=== PATIENT | male | born 1970 | race African-American/Black ===

== ENCOUNTER 2017-02-25 11:35 | Emergency (ER) | payer SELFPAY ==
[~2017-02-25] VITALS: Ht 182.9 cm; Wt 104.3 kg
[2017-02-25] MEDS ORDERED: METOPROLOL TART IMMED RELEASE 50 MG TABLET. PO ONE (12:15)
[2017-02-25 12:16] LABS: BASO % 1 % (0-3); EOS % 2 % (0-3); HEMATOCRIT 39.9 % (39.0-53.0); LYMPH # 1.8 x10^3/uL (1.0-4.8); LYMPH % 45 % (24-48); MEAN CORPUSCULAR HEMOGLOBIN 29 pg (25-35); MEAN CORPUSCULAR HGB CONC 33 g/dL (31-37); MEAN CORPUSCULAR VOLUME 89 fL (79-100); MONO % 11 % (0-9); NEUT % 41 % (31-73); PLATELET COUNT 166 x10^3/uL (140-400); RED CELL DISTRIBUTION WIDTH 13.7 % (11.5-14.5); WHITE BLOOD COUNT 3.9 x10^3/uL (4.0-11.0)
--- NOTE | 2017-02-25 12:20 | PHYS DOC ---
Past Medical History Past Medical History: Hypertension Past Surgical History: Other Additional Past Surgical Histo: left wrist Alcohol Use: Occasionally Additional Information: sober for a week. Drug Use: Other Social History Narrative: pt denies 02/25/17 Adult General Chief Complaint Chief Complaint: HYPERTENSION HPI HPI Patient is a 47 year old male who presents with complaint of high blood pressure. The patient states he has history of hypertension and is supposed to be on metoprolol therapy. [facility] Patient states that he ran out of his medication within the last week and states he has not been able to refill it due to being unable to pay for it. The patient states that he is working on getting the money to be able to pay for his medication, however he states that since being off of his medicine, he has been having trouble with headaches off and on. Patient also states that he has had a numb feeling in his left upper extremity but states he has not had any trouble with weakness. Patient also notes that he has felt "a pull in my heart." He states that this started last night and has been constant. Patient states that this worsens with movement. Patient denies any history of heart attack. The patient's symptoms caused him concern and he is worried that this is due to not being on his blood pressure medication. Patient states that he takes metoprolol 50 mg twice a day. Patient denies any unilateral weakness, difficulty with speech or swallowing, or vision loss. Review of Systems Review of Systems Constitutional: Denies fever or chills [] Eyes: Denies change in visual acuity, redness, or eye pain [] HENT: Denies nasal congestion or sore throat [] Respiratory: Denies cough or shortness of breath [] Cardiovascular: Chest pain, denies edema[] GI: Denies abdominal pain, nausea, vomiting, bloody stools or diarrhea [] : Denies dysuria or hematuria [] Musculoskeletal: Denies back pain or joint pain [] Integument: Denies rash or skin lesions [] Neurologic: Headache, numbness in left upper extremity which is currently resolved, denies focal weakness [] All other systems were reviewed and found to be within normal limits, except as documented in this note. Current Medications Current Medications Current Medications Medications (Trade) Dose Ordered Sig/Andrea Start Time Stop Time Status Last Admin Dose Admin Metoprolol Tartrate (Lopressor) 50 mg 1X ONCE 02/25/17 12:15 02/25/17 12:16 DC 02/25/17 12:28 50 MG Allergies Allergies Allergies Coded Allergies Type Severity Reaction Last Updated Verified No Known Allergies Allergy Unknown 08/27/15 Yes Physical Exam Physical Exam Constitutional: Alert, afebrile, no acute distress. [] HENT: Normocephalic, atraumatic, bilateral external ears normal, oropharynx moist, no oral exudates, nose normal. [] Eyes: PERRLA, EOMI, conjunctiva normal, no discharge. [] Neck: Normal range of motion, no tenderness, supple, no stridor. [] Cardiovascular:Heart rate regular rhythm, no murmur [] Lungs & Thorax: Bilateral breath sounds clear to auscultation [] Abdomen: Bowel sounds normal, soft, no tenderness, no masses, no pulsatile masses. [] Skin: Warm, dry, no erythema, no rash. [] Back: No tenderness, no CVA tenderness. [] Extremities: No tenderness, no cyanosis, no clubbing, ROM intact, no edema. [] Neurologic: Alert and oriented X 3, normal motor function, normal sensory function, no focal deficits noted. [] Current Patient Data Vital Signs Vital Signs Date Time Temp Pulse Resp B/P (MAP) Pulse Ox O2 Delivery O2 Flow Rate FiO2 02/25/17 12:28 72 160/103 02/25/17 11:50 98.1 18 99 Room Air 98.1 Lab Values Laboratory Tests Test 02/25/17 11:55 02/25/17 12:25 White Blood Count 3.9 x10^3/uL (4.0-11.0) L Red Blood Count 4.50 x10^6/uL (4.30-5.70) Hemoglobin 13.0 g/dL (13.0-17.5) Hematocrit 39.9 % (39.0-53.0) Mean Corpuscular Volume 89 fL (79-100) Mean Corpuscular Hemoglobin 29 pg (25-35) Mean Corpuscular Hemoglobin Concent 33 g/dL (31-37) Red Cell Distribution Width 13.7 % (11.5-14.5) Platelet Count 166 x10^3/uL (140-400) Neutrophils (%) (Auto) 41 % (31-73) Lymphocytes (%) (Auto) 45 % (24-48) Monocytes (%) (Auto) 11 % (0-9) H Eosinophils (%) (Auto) 2 % (0-3) Basophils (%) (Auto) 1 % (0-3) Neutrophils # (Auto) 1.6 x10^3uL (1.8-7.7) L Lymphocytes # (Auto) 1.8 x10^3/uL (1.0-4.8) Monocytes # (Auto) 0.4 x10^3/uL (0.0-1.1) Eosinophils # (Auto) 0.1 x10^3/uL (0.0-0.7) Basophils # (Auto) 0.0 x10^3/uL (0.0-0.2) Sodium Level 140 mmol/L (136-145) Potassium Level 4.0 mmol/L (3.5-5.1) Chloride Level 104 mmol/L (98-107) Carbon Dioxide Level 27 mmol/L (21-32) Anion Gap 9 (6-14) Blood Urea Nitrogen 16 mg/dL (8-26) Creatinine 1.3 mg/dL (0.7-1.3) Estimated GFR (Cockcroft-Gault) 71.0 BUN/Creatinine Ratio 12 (6-20) Glucose Level 128 mg/dL (70-99) H Calcium Level 8.3 mg/dL (8.5-10.1) L Magnesium Level 2.0 mg/dL (1.8-2.4) Total Bilirubin 0.2 mg/dL (0.2-1.0) Aspartate Amino Transferase (AST) 30 U/L (15-37) Alanine Aminotransferase (ALT) 44 U/L (16-63) Alkaline Phosphatase 78 U/L (46-116) Creatine Kinase 692 U/L (39-308) H Creatine Kinase MB (Mass) 2.0 ng/mL (0.0-3.6) Creatine Kinase MB Relative Index 0.3 % (0-4) Troponin I Quantitative < 0.017 ng/mL (0.000-0.055) Total Protein 7.1 g/dL (6.4-8.2) Albumin 3.7 g/dL (3.4-5.0) Albumin/Globulin Ratio 1.1 (1.0-1.7) Urine Collection Type Unknown Urine Color Yellow Urine Clarity Clear Urine pH 6.0 Urine Specific [place] 1.025 Urine Protein Negative mg/dL (NEG-TRACE) Urine Glucose (UA) Negative mg/dL (NEG) Urine Ketones (Stick) Negative mg/dL (NEG) Urine Blood Negative (NEG) Urine Nitrite Negative (NEG) Urine Bilirubin Negative (NEG) Urine Urobilinogen Dipstick 0.2 mg/dL (0.2 mg/dL) Urine Leukocyte Esterase Negative (NEG) Urine RBC 0 /HPF (0-2) Urine WBC 0 /HPF (0-4) Urine Bacteria 0 /HPF (0-FEW) Urine Mucus Mod /LPF Laboratory Tests 02/25/17 11:55 Laboratory Tests 02/25/17 11:55 EKG EKG Interpreted by me: Heart rate 77, sinus rhythm, leftward axis, normal intervals , no acute ST/T-wave abnormalities present[] Radiology/Procedures Radiology/Procedures [facility] [address] [place] [address] IMAGING REPORT Signed PATIENT: TORO GIVENS ACCOUNT: [id number] : 1970 LOCATION: ER AGE: 47 SEX: M EXAM STATUS: REG ER ORD. PHYSICIAN: NORRIS SHEEHAN MD REASON: chest pain since last night PROCEDURE: CHEST PA & LATERAL Chest, 2 views, 02/25/2017: History: Chest pain The heart size and pulmonary vascularity are normal. No pulmonary infiltrates are seen. There is no evidence of pleural fluid. There is minimal spurring in the spine. IMPRESSION: No acute cardiopulmonary abnormality is detected. DICTATED and SIGNED BY: DI PARISI MD DATE: 02/25/17 1240 CC: NORRIS SHEEHAN MD; NO PCP ~ [] Course & Med Decision Making Course & Med Decision Making Pertinent Labs and Imaging studies reviewed. (See chart for details) Patient was given oral metoprolol in the emergency department. Patient's lab work shows no elevation in troponin levels. One set of cardiac enzymes was obtained as the patient's symptoms have been present over the past 12 hours. The patient's left-sided pain is most consistent with acute muscle strain. The patient states that he feels much better and has no other symptoms at this time. The patient was given prescription for metoprolol to continue for the next 2 weeks for treatment. Advised follow-up with primary doctor in the next 3- 5 days for reevaluation and return to emergency department for any worsening symptoms. Patient voiced understanding and in agreement with treatment plan. Dragon Disclaimer Dragon Disclaimer This electronic medical record was generated, in whole or in part, using a voice recognition dictation system. Departure Departure Impression: Primary Impression: Hypertension Additional Impression: Muscle strain of anterior chest wall Disposition: HOME, SELF-CARE Condition: IMPROVED Referrals: NO PCP (PCP) Patient Instructions: Hypertension, Muscle Strain Additional Instructions: Follow-up with your primary doctor in 3-5 days for reevaluation. Return to emergency department for any worsening symptoms. Scripts Metoprolol Tartrate (METOPROLOL TARTRATE) 50 Mg Tablet 1 TAB PO BID, #30 TAB 0 Refills Prov: NORRIS SHEEHAN MD 02/25/17 Problem Qualifiers Primary Impression: Hypertension Hypertension type: essential hypertension Qualified Codes: I10 - Essential ( primary) hypertension NORRIS SHEEHAN MD Feb 25, 2017 12:20
[2017-02-25 12:31] LABS: BILIRUBIN,URINE NEGATIVE (NEG); GLUCOSE,URINE NEGATIVE (NEG); NITRITE,URINE NEGATIVE (NEG); PROTEIN,URINE NEGATIVE (NEG-TRACE); UROBILINOGEN,URINE 0.2 mg/dL (0.2 mg/dL)
[2017-02-25 12:33] LABS: CALCIUM 8.3 mg/dL (8.5-10.1); CREATININE 1.3 mg/dL (0.7-1.3)
[2017-02-25 12:37] LABS: ALBUMIN 3.7 g/dL (3.4-5.0); ALBUMIN/GLOBULIN RATIO 1.1 (1.0-1.7); TOTAL BILIRUBIN 0.2 mg/dL (0.2-1.0); TOTAL PROTEIN 7.1 g/dL (6.4-8.2)
--- NOTE | 2017-02-25 12:44 | RAD ---
Chest, 2 views, 02/25/2017: History: Chest pain The heart size and pulmonary vascularity are normal. No pulmonary infiltrates are seen. There is no evidence of pleural fluid. There is minimal spurring in the spine. IMPRESSION: No acute cardiopulmonary abnormality is detected.
[2017-02-25 12:50] LABS: BACTERIA,URINE 0 /HPF (0-FEW); RBC,URINE 0 /HPF (0-2); WBC,URINE 0 /HPF (0-4)
[2017-02-25] MEDS ORDERED: METO50TA6 PO (13:33)
[2017-02-25 13:57] VITALS: BP 144/90
--- NOTE | 2017-02-25 14:40 | EKG ---
[facility] [address] [place] [address] Test Date: 2017-02-25 Test Time: 11:53:16 Pat Name: TORO GIVENS Department: Room: Gender: M [employer]: : 1970 Requested By: NORRIS SHEEHAN Order Number: [id number] Reading MD: Measurements Intervals [place] Rate: 76 P: 49 WV: 160 QRS: -6 QRSD: 82 T: 15 QT: 386 QTc: 438 Interpretive Statements SINUS RHYTHM LEFTWARD AXIS BORDERLINE ECG No previous ECG available for comparison
== END 2017-02-25 14:12 | disposition home or self-care (01) ==
LOC: ER 11:35
DX: S29.011A Strain of muscle and tendon of front wall of thorax, initial encounter (principal); I10 Essential (primary) hypertension; Z79.899 Other long term (current) drug therapy; X58.XXXA Exposure to other specified factors, initial encounter; Y93.89 Activity, other specified; Y92.89 Other specified places as the place of occurrence of the external cause; Y99.8 Other external cause status
CPT/HCPCS: 36415; 71020; 80053; 81001; 82553; 83735; 84484; 85025; 93005; 99285-25

== ENCOUNTER 2018-02-26 06:10 | Emergency (ER) | payer SELFPAY ==
[~2018-02-26] VITALS: Ht 180.3 cm; Wt 106.6 kg
[~2018-02-26 06:10] MED LIST: METO50TA6 PO
[2018-02-26 06:20] VITALS: BP 174/114
[2018-02-26] MEDS ORDERED: CYCL5TAB PO (06:41)
[2018-02-26] MEDS ORDERED: KETOROLAC 30 MG/ML VIAL. IM ONE (06:45)
--- NOTE | 2018-02-26 06:52 | PHYS DOC ---
Past Medical History Past Medical History: Hypertension Past Surgical History: Other Additional Past Surgical Histo: left wrist Alcohol Use: Occasionally Drug Use: Other Adult General Chief Complaint Chief Complaint: Neck Pain HPI HPI Patient is a 48 year old [m with neck pain. Onset woke up with it two days ago , thinks slept on it wrong left neck muscle area, points to trapezius. no n/t/w. no h/a. no che4st pain did have cough a few weeks ago now resolved Current Medications Current Medications Current Medications Medications (Trade) Dose Ordered Sig/Andrea Start Time Stop Time Status Last Admin Dose Admin Ketorolac Tromethamine (Toradol 30mg Vial) 30 mg 1X ONCE 02/26/18 06:45 02/26/18 06:46 Allergies Allergies Allergies Coded Allergies Type Severity Reaction Last Updated Verified No Known Allergies Allergy Unknown 08/27/15 Yes Physical Exam Physical Exam Constitutional: Well developed, well nourished, no acute distress, non-toxic appearance. [] HENT: Normocephalic, atraumatic, bilateral external ears normal, oropharynx moist, no oral exudates, nose normal. [] Eyes: PERRLA, EOMI, conjunctiva normal, no discharge. [] Neck: Normal range of motion, no tenderness, supple, no stridor. [] Pulmonary: Normal respiratory effort no increased work of breathing no obvious chest wall trauma Skin: Warm, dry, no erythema, no rash. [] Back: No tenderness, no CVA tenderness. [] Extremities: There is mild tenderness and palpable spasm noted to the left trapezius muscle with mild swelling there. Neuro exam is otherwise normal strength and sensation fully intact. Neurologic: Alert and oriented X 3, normal motor function, normal sensory function, no focal deficits noted. [] Psychologic: Affect normal, judgement normal, mood normal. [] Current Patient Data Vital Signs Vital Signs Date Time Temp Pulse Resp B/P (MAP) Pulse Ox O2 Delivery O2 Flow Rate FiO2 02/26/18 06:20 98.4 79 18 174/114 (134) 97 Room Air 98.4 EKG EKG [] Radiology/Procedures Radiology/Procedures [] Course & Med Decision Making Course & Med Decision Making Pertinent Labs and Imaging studies reviewed. (See chart for details) neck strain no red flags no central ttp no fever no neuro findings. reproducible on exam Dragon Disclaimer Dragon Disclaimer This electronic medical record was generated, in whole or in part, using a voice recognition dictation system. Departure Departure Impression: Primary Impression: Neck strain Additional Impression: Elevated blood pressure reading Disposition: HOME, SELF-CARE Condition: STABLE Patient Instructions: Muscle Strain Additional Instructions: bp check one month Scripts Cyclobenzaprine Hcl (CYCLOBENZAPRINE HCL) 5 Mg Tablet 5 MG PO PRN TID PRN for PAIN, #15 TAB Prov: SUNG WALTON MD 02/26/18 Problem Qualifiers SUNG WALTON MD Feb 26, 2018 06:52
[2018-02-27] MEDS ORDERED: DIAZ5TAB PO (16:31)
== END 2018-02-26 06:58 | disposition home or self-care (01) ==
LOC: ER 06:10
DX: S16.1XXA Strain of muscle, fascia and tendon at neck level, initial encounter (principal); I10 Essential (primary) hypertension; X58.XXXA Exposure to other specified factors, initial encounter; Y93.89 Activity, other specified; Y92.89 Other specified places as the place of occurrence of the external cause; Y99.8 Other external cause status
CPT/HCPCS: 96372; 99283; J1885

== ENCOUNTER 2018-02-27 13:04 | Emergency (ER) | payer SELFPAY ==
[~2018-02-27] VITALS: Ht 180.3 cm; Wt 106.6 kg
[~2018-02-27 13:04] MED LIST changes: +CYCL5TAB PO
[2018-02-27] MEDS ORDERED: MORPHINE SULFATE 10 MG/ML VIAL. SQ ONE (14:30)
--- NOTE | 2018-02-27 16:00 | RAD ---
Cervical spine CT without contrast History: Worsening neck pain for a few days Technique: Noncontrast CT imaging was performed of the cervical spine. Multiplanar images are reviewed. Exposure: One or more of the following individualized dose reduction techniques were utilized for this examination: 1. Automated exposure control 2. Adjustment of the mA and/or kV according to patient size 3. Use of iterative reconstruction technique. Comparison: August 27, 2015 Findings: There is [id number] reversal of the lordotic curvature centered at C5-6. No cervical spine acute fracture is identified. Vertebral body stature is preserved. AP is alignment is within normal limits. Atlanto-axial distance is within normal limits. There is appropriate alignment of lateral masses of C1 relative to C2. Occipital condylar-C1 relationship is maintained. There is again fairly advanced degenerative disc disease C5-6 and C6-7, to lesser degree at C3-4 and C4-5. There are disc osteophyte complexes at C5-6 and C6-7, likely spinal stenosis about 8 to 9 mm. There is also mild uncovertebral degenerative change greatest on the right at C5-C6 and bilaterally at C6-7. There is overall mild narrowing of the right C5-6 neural foramen. Impression: 1. No acute cervical spine fracture is identified. There is reversal of the lordotic curvature, nonspecific although could be associated with spasm. There is degenerative disc disease and spondylosis greatest C5-6 and C6-7, likely spinal stenosis about 8 to 9 mm at these levels. Electronically signed by: Yomi Thomas MD (02/27/2018 3:56 PM) [id number]
[2018-02-27] MEDS ORDERED: DIAZ5TAB PO (16:31)
--- NOTE | 2018-02-27 16:31 | PHYS DOC ---
Past Medical History Past Medical History: Hypertension Past Surgical History: Other Additional Past Surgical Histo: left wrist Alcohol Use: None Drug Use: None Social History Narrative: denies Adult General Chief Complaint Chief Complaint: Neck Pain HPI HPI Patient is a 48 year old male who presents with pain. The patient was seen at this facility 3 days ago and placed on muscle relaxants and pain medication. He states that the neck pain has not improved at all. He is still unable to lift his head fully upright. He denies point spinal pain of his cervical spine. He denies known injury but does think he slept wrong. Review of Systems Review of Systems Constitutional: Denies fever or chills [] Respiratory: Denies cough or shortness of breath [] Cardiovascular: No additional information not addressed in HPI [] GI: Denies abdominal pain, nausea, vomiting, bloody stools or diarrhea [] : Denies dysuria or hematuria [] Musculoskeletal: See history of present illness Integument: Denies rash or skin lesions [] Neurologic: Denies headache, focal weakness or sensory changes [] Endocrine: Denies polyuria or polydipsia [] All other systems were reviewed and found to be within normal limits, except as documented in this note. Current Medications Current Medications Current Medications Medications (Trade) Dose Ordered Sig/Andrea Start Time Stop Time Status Last Admin Dose Admin Morphine Sulfate (Morphine Sulfate) 10 mg 1X ONCE 02/27/18 14:30 02/27/18 14:31 DC 02/27/18 14:11 10 MG Allergies Allergies Allergies Coded Allergies Type Severity Reaction Last Updated Verified No Known Allergies Allergy Unknown 08/27/15 Yes Physical Exam Physical Exam Constitutional: Well developed, well nourished, no acute distress, non-toxic appearance. [] Neck: Decreased range of motion, tenderness to bilateral trapezius muscles with palpation, no stridor or point cervical spinal tenderness, no cervical step- offs noted. [] Cardiovascular:Heart rate regular rhythm, no murmur [] Lungs & Thorax: Bilateral breath sounds clear to auscultation [] Abdomen: Bowel sounds normal, soft, no tenderness, no masses, no pulsatile masses. [] Skin: Warm, dry, no erythema, no rash. [] Neurologic: Alert and oriented X 3, normal motor function, normal sensory function, no focal deficits noted. [] Psychologic: Affect normal, judgement normal, mood normal. [] Current Patient Data Vital Signs Vital Signs Date Time Temp Pulse Resp B/P (MAP) Pulse Ox O2 Delivery O2 Flow Rate FiO2 02/27/18 16:33 82 18 178/110 (132) 98 Room Air 02/27/18 13:17 98.0 98.0 EKG EKG [] Radiology/Procedures Radiology/Procedures []PATIENT: TORO GIVENS TACCOUNT: [id number]#: [id number] : 1970 LOCATION: ER AGE: 48 SEX: M EXAM STATUS: REG ER ORD. PHYSICIAN: BERNADINE CHURCH APRN REASON: worsening neck pain, no known injury PROCEDURE: CT CERVICAL SPINE WO CONTRAST Cervical spine CT without contrast History: Worsening neck pain for a few days Technique: Noncontrast CT imaging was performed of the cervical spine. Multiplanar images are reviewed. Exposure: One or more of the following individualized dose reduction techniques were utilized for this examination: 1. Automated exposure control 2. Adjustment of the mA and/or kV according to patient size 3. Use of iterative reconstruction technique. Comparison: August 27, 2015 Findings: There is [id number] reversal of the lordotic curvature centered at C5-6. No cervical spine acute fracture is identified. Vertebral body stature is preserved. AP is alignment is within normal limits. Atlanto-axial distance is within normal limits. There is appropriate alignment of lateral masses of C1 relative to C2. Occipital condylar-C1 relationship is maintained. There is again fairly advanced degenerative disc disease C5-6 and C6-7, to lesser degree at C3-4 and C4-5. There are disc osteophyte complexes at C5-6 and C6-7, likely spinal stenosis about 8 to 9 mm. There is also mild uncovertebral degenerative change greatest on the right at C5-C6 and bilaterally at C6-7. There is overall mild narrowing of the right C5-6 neural foramen. Impression: 1. No acute cervical spine fracture is identified. There is reversal of the lordotic curvature, nonspecific although could be associated with spasm. There is degenerative disc disease and spondylosis greatest C5-6 and C6-7, likely spinal stenosis about 8 to 9 mm at these levels. Electronically signed by: Kurt Rosa MD (02/27/2018 3:56 PM) [id number] DICTATED and SIGNED BY: KURT ROSA MD DATE: 02/27/18 1552 Course & Med Decision Making Course & Med Decision Making Pertinent Labs and Imaging studies reviewed. (See chart for details) []The patient has been instructed to stop taking the Flexeril and start taking the Valium for muscle spasms. He is to follow-up with his primary care provider in 3 days if not improving or return to the emergency department if worsening. Dragon Disclaimer Dragon Disclaimer This electronic medical record was generated, in whole or in part, using a voice recognition dictation system. Departure Departure Impression: Primary Impression: Neck muscle spasm Disposition: HOME, SELF-CARE Condition: STABLE Referrals: NO PCP (PCP) Patient Instructions: Torticollis, Acute Additional Instructions: Stop taking the Flexeril and use the diazepam instead. Follow-up with your primary care provider in 3 days for recheck or return to the emergency department if worsening. Scripts Diazepam (VALIUM) 5 Mg Tablet 5 MG PO TID for muscle spasm, #20 TAB Prov: BERNADINE CHURCH APRN 02/27/18 BERNADINE CHURCH APRN Feb 27, 2018 16:31
[2018-02-27 16:33] VITALS: BP 178/110
== END 2018-02-27 16:40 | disposition home or self-care (01) ==
LOC: ER 13:04
DX: M62.838 Other muscle spasm (principal); M54.2 Cervicalgia; I10 Essential (primary) hypertension
CPT/HCPCS: 72125; 96372; 99284; J2270

== ENCOUNTER 2018-03-07 06:45 | Emergency (ER) | payer SELFPAY ==
[~2018-03-07] VITALS: Ht 182.9 cm; Wt 115.7 kg
[~2018-03-07 06:45] MED LIST changes: +DIAZ5TAB PO
[2018-03-07 06:53] VITALS: BP 162/93
[2018-03-07] MEDS ORDERED: IV NORMAL SALINE 1000ML BAG 1,000 ML IV SCH (07:02)
--- NOTE | 2018-03-07 07:06 | PHYS DOC ---
Past Medical History Past Medical History: Hypertension Past Surgical History: Other Additional Past Surgical Histo: left wrist Smoking: Cigarettes (The patient is a nonsmoker.) Alcohol Use: Rarely Drug Use: None Adult General Chief Complaint Chief Complaint: ALCOHOL INTOXICATION HPI HPI Patient is a 48-year-old male who presents to the emergency department for evaluation. EMS reports that the primary reason he recalls the patient was found unresponsive by a family member, apparently after drinking heavily overnight. The patient does admit to drinking overnight, but denies any other substance abuse. He denies any pain. He is reporting numbness of his left arm which hasn't present for the past week and a half or so. He also report some left-sided neck pain. He denies any injuries. He states his neck pain has been present for a week and a half as well. He denies any focal weakness, and EMS reported a Marcus stroke scale was negative. He is not having any headaches or vision changes, although his speech is slurred, possibly consistent with alcohol intoxication. There are no alleviating or exacerbating factors to the patient's symptoms otherwise. Review of Systems Review of Systems Constitutional: Denies fever or chills [] Eyes: Denies change in visual acuity, redness, or eye pain [] HENT: Denies nasal congestion or sore throat. [] Respiratory: Denies cough or shortness of breath [] Cardiovascular: The patient denies any shortness of breath, chest pain, palpitations, or orthopnea [] GI: Denies abdominal pain, nausea, vomiting, bloody stools or diarrhea [] : Denies dysuria or hematuria [] Musculoskeletal: Denies back pain or joint pain [] Integument: Denies rash or skin lesions [] Neurologic: Denies headache, focal weakness or sensory changes,, except as noted in the history of present illness [] Endocrine: Denies polyuria or polydipsia [] All other systems were reviewed and found to be within normal limits, except as documented in this note. Current Medications Current Medications Current Medications Medications (Trade) Dose Ordered Sig/Andrea Start Time Stop Time Status Last Admin Dose Admin Sodium Chloride 1,000 ml @ 1,000 mls/hr Q1H 03/07/18 07:02 03/07/18 08:01 DC 03/07/18 08:15 1,000 MLS/HR Allergies Allergies Allergies Coded Allergies Type Severity Reaction Last Updated Verified No Known Allergies Allergy Unknown 08/27/15 Yes Physical Exam Physical Exam PHYSICAL EXAM: CONSTITUTIONAL: Well developed, well nourished HEAD: normocephalic, atraumatic EENT: PERRL, EOMI. Conjunctivae normal color, sclerae non-icteric; moist mucous membranes. NECK: Supple, there is mild tenderness to palpation diffusely of the left neck soft tissue without focal tenderness to palpation or mass. There is also mild tenderness to palpation to the left posterior cervical spine. There are no carotid bruits.; no meningismus. LUNGS: Lungs CTA, breathing even and unlabored. Normal air movement. HEART: Regular rate and rhythm, no murmur CHEST: No deformity; non-tender ABDOMEN: The abdomen is soft, and non-tender, no masses or bruits. EXTREM: Normal ROM; no deformity, no calf tenderness. Normal pulses palpable in all extremities. There is no pedal edema. SKIN: No rash; no diaphoresis NEURO: Alert; somewhat slurred speech, although the patient's speech is articulate. CN's grossly intact; strength grossly intact without focal deficit. There is no cerebellar deficit. Sensation is grossly intact. BACK: No CVA TTP. Current Patient Data Vital Signs Vital Signs Date Time Temp Pulse Resp B/P (MAP) Pulse Ox O2 Delivery O2 Flow Rate FiO2 03/07/18 06:53 98.8 94 18 162/93 (116) 97 Room Air 98.8 Lab Values Laboratory Tests Test 03/07/18 07:16 03/07/18 07:40 Urine Collection Type Unknown Urine Color Yellow Urine Clarity Clear Urine pH 5.5 Urine Specific [place] 1.010 Urine Protein Negative mg/dL (NEG-TRACE) Urine Glucose (UA) Negative mg/dL (NEG) Urine Ketones (Stick) Negative mg/dL (NEG) Urine Blood Negative (NEG) Urine Nitrite Negative (NEG) Urine Bilirubin Negative (NEG) Urine Urobilinogen Dipstick 0.2 mg/dL (0.2 mg/dL) Urine Leukocyte Esterase Negative (NEG) Urine RBC 0 /HPF (0-2) Urine WBC 0 /HPF (0-4) Urine Squamous Epithelial Cells Few /LPF Urine Bacteria 0 /HPF (0-FEW) Urine Opiates Screen Neg (NEG) Urine Methadone Screen Neg (NEG) Urine Barbiturates Neg (NEG) Urine Phencyclidine Screen Neg (NEG) Urine Amphetamine/Methamphetamine Neg (NEG) Urine Benzodiazepines Screen Neg (NEG) Urine Cocaine Screen Neg (NEG) Urine Cannabinoids Screen Neg (NEG) Urine Ethyl Alcohol Pos (NEG) White Blood Count 4.7 x10^3/uL (4.0-11.0) Red Blood Count 4.50 x10^6/uL (4.30-5.70) Hemoglobin 13.2 g/dL (13.0-17.5) Hematocrit 39.3 % (39.0-53.0) Mean Corpuscular Volume 87 fL (79-100) Mean Corpuscular Hemoglobin 29 pg (25-35) Mean Corpuscular Hemoglobin Concent 34 g/dL (31-37) Red Cell Distribution Width 13.8 % (11.5-14.5) Platelet Count 222 x10^3/uL (140-400) Neutrophils (%) (Auto) 50 % (31-73) Lymphocytes (%) (Auto) 41 % (24-48) Monocytes (%) (Auto) 8 % (0-9) Eosinophils (%) (Auto) 1 % (0-3) Basophils (%) (Auto) 1 % (0-3) Neutrophils # (Auto) 2.3 x10^3uL (1.8-7.7) Lymphocytes # (Auto) 1.9 x10^3/uL (1.0-4.8) Monocytes # (Auto) 0.4 x10^3/uL (0.0-1.1) Eosinophils # (Auto) 0.0 x10^3/uL (0.0-0.7) Basophils # (Auto) 0.1 x10^3/uL (0.0-0.2) Prothrombin Time 12.6 SEC (11.7-14.0) Prothrombin Time INR 1.0 (0.8-1.1) Sodium Level 146 mmol/L (136-145) H Potassium Level 4.1 mmol/L (3.5-5.1) Chloride Level 108 mmol/L (98-107) H Carbon Dioxide Level 27 mmol/L (21-32) Anion Gap 11 (6-14) Blood Urea Nitrogen 18 mg/dL (8-26) Creatinine 1.5 mg/dL (0.7-1.3) H Estimated GFR (Cockcroft-Gault) 59.9 BUN/Creatinine Ratio 12 (6-20) Glucose Level 115 mg/dL (70-99) H Calcium Level 8.9 mg/dL (8.5-10.1) Magnesium Level 2.3 mg/dL (1.8-2.4) Total Bilirubin 0.2 mg/dL (0.2-1.0) Aspartate Amino Transferase (AST) 27 U/L (15-37) Alanine Aminotransferase (ALT) 51 U/L (16-63) Alkaline Phosphatase 90 U/L (46-116) Creatine Kinase 967 U/L (39-308) H Creatine Kinase MB (Mass) 3.1 ng/mL (0.0-3.6) Creatine Kinase MB Relative Index 0.3 % (0-4) Troponin I Quantitative < 0.017 ng/mL (0.000-0.055) UR-Mfs-R-Type Natriuretic Peptide 148 pg/mL (0-124) H Total Protein 8.4 g/dL (6.4-8.2) H Albumin 3.9 g/dL (3.4-5.0) Albumin/Globulin Ratio 0.9 (1.0-1.7) L Lipase 124 U/L (73-393) Ethyl Alcohol Level 265 mg/dL (0-10) H Laboratory Tests 03/07/18 07:40 Laboratory Tests 03/07/18 07:40 EKG EKG [Normal sinus rhythm at a rate of 85 beats for minute, leftward axis, normal intervals, there are no acute ischemic ST/T changes.] Radiology/Procedures Radiology/Procedures [PROCEDURE: PORTABLE CHEST 1V PROCEDURE: PORTABLE CHEST 1V CLINICAL INDICATION: CHEST PAIN COMPARISON: 02/25/2017 FINDINGS: No pneumothorax identified. Cardiac and mediastinal contours unremarkable. No pulmonary consolidation or acute airspace disease. No acute osseous abnormalities identified. IMPRESSION: No pulmonary consolidation or acute airspace disease. ] PROCEDURE: CT HEAD AND CERVICAL SPINE WO RS Compliance statement: One or more of the following individualized dose reduction techniques were utilized for this examination: 1. Automated exposure control. 2. Adjustment of the mA and/or kV according to patient size. 3. Use of iterative reconstruction technique. Indication:ETOH FOUND DOWN PREV SENT NO CONTRAST TECHNIQUE: CT head without IV contrast COMPARISON:CT head from 08/27/2015 FINDINGS: No pathologic extra-axial or intra-axial fluid collection. The ventricles and basal cisterns are within normal limits. No acute intracranial bleed. No focal loss of miller-white differentiation. Orbits are within normal limits. No large scalp hematoma. No acute calvarial fractures. Visualized paranasal sinuses and mastoid air cells are clear. IMPRESSION: No acute intracranial process. Indication:ETOH FOUND DOWN PREV SENT NO CONTRAST TECHNIQUE: CT of the cervical spine without IV contrast with multiplanar reformats. COMPARISON:02/27/2018 FINDINGS: Cervical spine is in normal anatomic alignment. Atlantoaxial joint interval is preserved. Facet joints are in normal anatomic alignment. No compression deformities. No acute fracture. Mild intervertebral disc space narrowing seen in the lower cervical spine with endplate sclerosis and osteophyte formation. Noncontrast appearance of the neck soft tissue is within normal limits. Clear lung apices. IMPRESSION: No acute fractures. Course & Med Decision Making Course & Med Decision Making Pertinent Labs and Imaging studies reviewed. (See chart for details) [11:10 AM: The patient's condition remained stable. He has slept throughout most of his ER stay, but is currently spontaneously awake, ambulatory, and has no complaints. He does report some mild persistent neck discomfort, but has no other focal neurologic deficits. His vision is intact, speech is articulate at this time. I discussed importance of close follow-up with his primary care provider, and return precautions.] Dragon Disclaimer Dragon Disclaimer This electronic medical record was generated, in whole or in part, using a voice recognition dictation system. Departure Departure Impression: Primary Impression: Alcohol intoxication Disposition: 01 HOME, SELF-CARE Condition: STABLE Referrals: MARIBEL BERKOWITZ MD Patient Instructions: Alcohol Intoxication, Cervical Sprain, Paresthesia SAUNDRA ARMAS MD Mar 07, 2018 07:06
[2018-03-07 07:30] LABS: BILIRUBIN,URINE NEGATIVE (NEG); CLARITY,URINE CLEAR; COLOR,URINE YELLOW; NITRITE,URINE NEGATIVE (NEG); PH,URINE 5.5; PROTEIN,URINE NEGATIVE (NEG-TRACE); UROBILINOGEN,URINE 0.2 mg/dL (0.2 mg/dL)
[2018-03-07 07:37] LABS: BARBITURATES NEG (NEG); BENZODIAZEPINES NEG (NEG); CANNABINOIDS NEG (NEG); COCAINE NEG (NEG); METHADONE NEG (NEG); OPIATES NEG (NEG); PHENCYCLIDINE NEG (NEG)
[2018-03-07 07:40] LABS: AMPHETAMINE/METHAMPHETAMINE NEG (NEG)
[2018-03-07 07:42] LABS: BACTERIA,URINE 0 /HPF (0-FEW); RBC,URINE 0 /HPF (0-2); SQUAMOUS EPITHELIAL CELL,UR FEW /LPF; WBC,URINE 0 /HPF (0-4)
--- NOTE | 2018-03-07 07:58 | EKG ---
[facility] [address] [place] [address] Test Date: 2018-03-07 Test Time: 07:24:10 Pat Name: TORO GIVENS Department: Room: Gender: M [employer] Administrator: : [id number] Requested By: SUANDRA ARMAS Order Number: [id number] Reading MD: Benoit Tyler Measurements Intervals [place] Rate: 85 P: 56 MT: 166 QRS: -17 QRSD: 86 T: 12 QT: 386 QTc: 465 Interpretive Statements SINUS RHYTHM LEFT ATRIAL ABNORMALITY LEFTWARD AXIS ABNORMAL ECG Electronically Signed On 03-15-2018 8:07:10 WEATHER ANALYST by Benoit Tyler
[2018-03-07 07:59] LABS: BASO # 0.1 x10^3/uL (0.0-0.2); BASO % 1 % (0-3); EOS % 1 % (0-3); HEMATOCRIT 39.3 % (39.0-53.0); HEMOGLOBIN 13.2 g/dL (13.0-17.5); LYMPH # 1.9 x10^3/uL (1.0-4.8); LYMPH % 41 % (24-48); MEAN CORPUSCULAR HEMOGLOBIN 29 pg (25-35); MEAN CORPUSCULAR HGB CONC 34 g/dL (31-37); MEAN CORPUSCULAR VOLUME 87 fL (79-100); MONO # 0.4 x10^3/uL (0.0-1.1); MONO % 8 % (0-9); NEUT # 2.3 x10^3uL (1.8-7.7); NEUT % 50 % (31-73); PLATELET COUNT 222 x10^3/uL (140-400); RED CELL DISTRIBUTION WIDTH 13.8 % (11.5-14.5); WHITE BLOOD COUNT 4.7 x10^3/uL (4.0-11.0)
[2018-03-07 08:06] LABS: PROTHROMBIN TIME PATIENT 12.6 SEC (11.7-14.0)
--- NOTE | 2018-03-07 08:06 | RAD ---
PQRS Compliance statement: One or more of the following individualized dose reduction techniques were utilized for this examination: 1. Automated exposure control. 2. Adjustment of the mA and/or kV according to patient size. 3. Use of iterative reconstruction technique. Indication:ETOH FOUND DOWN PREV SENT NO CONTRAST TECHNIQUE: CT head without IV contrast COMPARISON:CT head from 08/27/2015 FINDINGS: No pathologic extra-axial or intra-axial fluid collection. The ventricles and basal cisterns are within normal limits. No acute intracranial bleed. No focal loss of miller-white differentiation. Orbits are within normal limits. No large scalp hematoma. No acute calvarial fractures. Visualized paranasal sinuses and mastoid air cells are clear. IMPRESSION: No acute intracranial process. Indication:ETOH FOUND DOWN PREV SENT NO CONTRAST TECHNIQUE: CT of the cervical spine without IV contrast with multiplanar reformats. COMPARISON:02/27/2018 FINDINGS: Cervical spine is in normal anatomic alignment. Atlantoaxial joint interval is preserved. Facet joints are in normal anatomic alignment. No compression deformities. No acute fracture. Mild intervertebral disc space narrowing seen in the lower cervical spine with endplate sclerosis and osteophyte formation. Noncontrast appearance of the neck soft tissue is within normal limits. Clear lung apices. IMPRESSION: No acute fractures. Electronically signed by: Reymundo Collins DO (03/07/2018 8:02 AM) [facility]
--- NOTE | 2018-03-07 08:17 | RAD ---
PROCEDURE: PORTABLE CHEST 1V CLINICAL INDICATION: CHEST PAIN COMPARISON: 02/25/2017 FINDINGS: No pneumothorax identified. Cardiac and mediastinal contours unremarkable. No pulmonary consolidation or acute airspace disease. No acute osseous abnormalities identified. IMPRESSION: No pulmonary consolidation or acute airspace disease. Electronically signed by: Reymundo Collins DO (03/07/2018 8:13 AM) [facility]
[2018-03-07 08:21] LABS: CALCIUM 8.9 mg/dL (8.5-10.1); CREATININE 1.5 mg/dL (0.7-1.3); GFR 59.9; POTASSIUM 4.1 mmol/L (3.5-5.1)
[2018-03-07 08:32] LABS: ALBUMIN 3.9 g/dL (3.4-5.0); ALBUMIN/GLOBULIN RATIO 0.9 (1.0-1.7); MAGNESIUM 2.3 mg/dL (1.8-2.4); TOTAL BILIRUBIN 0.2 mg/dL (0.2-1.0); TOTAL PROTEIN 8.4 g/dL (6.4-8.2)
== END 2018-03-07 11:23 | disposition home or self-care (01) ==
LOC: ER 06:45
DX: F10.129 Alcohol abuse with intoxication, unspecified (principal); I10 Essential (primary) hypertension; F17.210 Nicotine dependence, cigarettes, uncomplicated; Y90.8 Blood alcohol level of 240 mg/100 ml or more
CPT/HCPCS: 36415; 70450; 71045; 72125; 80053; 80307; 81001; 82553; 83690; 83735; 83880; 84484; 85025; 85610; 93005; 96360; 96361; 99284; G0480; J7030

== ENCOUNTER 2018-06-19 13:43 | Emergency (ER) | payer MEDICARE, OTHER ==
[~2018-06-19] VITALS: Ht 177.8 cm; Wt 115.7 kg
[2018-06-19] MEDS ORDERED: ONDANSETRON PF 4 MG/2 ML VIAL. ONE (14:17)
[2018-06-19] MEDS ORDERED: IV NORMAL SALINE 1000ML BAG 1,000 ML IV SCH (14:24)
[2018-06-19] MEDS ORDERED: ONDANSETRON PF 4 MG/2 ML VIAL. IV ONE (14:30)
[2018-06-19 14:37] LABS: BASO % 1 % (0-3); EOS # 0.1 x10^3/uL (0.0-0.7); EOS % 1 % (0-3); HEMOGLOBIN 13.2 g/dL (13.0-17.5); LYMPH # 2.8 x10^3/uL (1.0-4.8); LYMPH % 42 % (24-48); MEAN CORPUSCULAR HEMOGLOBIN 29 pg (25-35); MEAN CORPUSCULAR HGB CONC 33 g/dL (31-37); MEAN CORPUSCULAR VOLUME 86 fL (79-100); MONO # 0.6 x10^3/uL (0.0-1.1); MONO % 9 % (0-9); NEUT # 3.2 x10^3uL (1.8-7.7); NEUT % 48 % (31-73); PLATELET COUNT 182 x10^3/uL (140-400); RED BLOOD COUNT 4.63 x10^6/uL (4.30-5.70); RED CELL DISTRIBUTION WIDTH 14.5 % (11.5-14.5); WHITE BLOOD COUNT 6.7 x10^3/uL (4.0-11.0)
[2018-06-19 14:46] LABS: PROTHROMBIN TIME PATIENT 14.7 SEC (11.7-14.0)
[2018-06-19 14:51] LABS: CALCIUM 8.8 mg/dL (8.5-10.1); CREATININE 1.8 mg/dL (0.7-1.3); GFR 48.6
[2018-06-19 14:59] LABS: ALBUMIN 3.6 g/dL (3.4-5.0); ALBUMIN/GLOBULIN RATIO 0.9 (1.0-1.7); TOTAL BILIRUBIN 0.3 mg/dL (0.2-1.0); TOTAL PROTEIN 7.4 g/dL (6.4-8.2)
--- NOTE | 2018-06-19 15:26 | RAD ---
CT head; CT cervical spine lumbar spine without contrast History: Syncope, fall Technique: Noncontrast CT imaging was performed of the head, cervical spine, lumbar spine. Multiplanar reconstruction images are submitted. Exposure: One or more of the following individualized dose reduction techniques were utilized for this examination: 1. Automated exposure control 2. Adjustment of the mA and/or kV according to patient size 3. Use of iterative reconstruction technique. Head CT Comparison: March 07, 2018 Findings: There is left frontal region scalp hematoma. No acute extra-axial or parenchymal hemorrhage is identified. There is no significant intra-axial mass effect, midline shift, or extra-axial fluid collection. The miller-white differentiation of the major vascular territories is preserved. The ventricles, sulci, and cisterns are within normal limits in size and configuration. The mastoid air cells and the visualized paranasal sinuses are aerated. There is right nicolas bullosa. There is no significant focal calvarial abnormality. Impression: 1. No acute intracranial abnormality is identified. 2. There is left frontal region scalp hematoma. Cervical spine CT Comparison: March 07, 2018 Findings: No acute cervical spine fracture is identified. Vertebral body stature and AP alignment are within normal limits. Atlanto-axial distance is within normal limits. There is appropriate alignment of lateral masses of C1 relative to C2. Occipital condylar-C1 relationship is maintained. There is more advanced degenerative disc disease at C6-7 and to lesser degree at C5-6 and C3-4. There are minimal disc osteophyte complexes greatest C5-6 and C6-7, likely borderline narrowing of the central canal at C6-7 and likely mild narrowing of the central canal about 9 to 10 mm at C5-6. There is multilevel facet and uncovertebral degenerative change. There is moderate to severe narrowing of the right C5-6 neural foramen. There is fairly severe narrowing of the left C6-7 neural foramen, probable moderate narrowing on the right at C6-7. Impression: 1. No acute cervical spine fracture is identified. 2. There is multilevel cervical degenerative disc disease and spondylosis greatest C5-6 and C6-7, likely mild spinal stenosis greatest C5-6. 3. Facet and uncovertebral degenerative change contributes to neural foramina compromise greatest on the right at C5-6 and bilaterally at C6-7. Lumbar spine: COMPARISON: None FINDINGS: There is transitional anatomy of the lumbar spine. For the purpose of this report, most inferior fully formed intervertebral disc space is considered L5-S1, small bilateral riblets at what is considered L1, and rudimentary intervertebral disc space at what is considered S1-S2. Lumbar vertebral body stature is overall maintained. There is moderate degenerative disc disease at what is considered L5-S1. There is also disc osteophyte complex and bulge at what is considered L5-S1. No acute lumbar spine fracture is identified. There is multilevel lumbar facet degenerative change. There are some small foci of symmetric bony irregularity of the anterior, lateral margins of the lateral sacrum near the sacroiliac joints more likely to be chronic. There is mild narrowing of the right L5-S1 neural foramen in part from disc osteophyte complex. IMPRESSION: 1. There is transitional anatomy of the lumbar spine. No acute lumbar spine fracture is identified. 2. There is degenerative disc disease and spondylosis at what is considered L5-S1, also disc bulge at this level. There is multilevel lumbar facet degenerative change. 3. There are some small symmetric foci of irregularity of the anterolateral sacrum bilaterally more likely to be chronic. Electronically signed by: Yomi Thomas MD (06/19/2018 3:23 PM) [facility]
--- NOTE | 2018-06-19 15:37 | PHYS DOC ---
Past Medical History Past Medical History: Alcoholism, Hypertension, Hepatitis Past Surgical History: Other Additional Past Surgical Histo: bilateral wrist Smoking: Cigarettes Alcohol Use: Heavy Drug Use: None Adult General Chief Complaint Chief Complaint: fall and head injury HPI HPI Patient is a 48 year old male who presents with complaining of a fall and injury to his head. Patient states he went to a local dollar store when he wanted to get out of his truck, felt dizzy and lost her balance and had a fall with injury to his head and neck. Patient was able to drive home and brought to ER by his mother and his fiance. Patient complaining of pain in his head and neck and lower back area and rated his pain as a moderate pain. Patient is up-to -date with his tetanus immunization. Patient has history of alcoholism and stated he re-started drinking alcohol for the last 1 week and had sick pack of beer yesterday. The patient states he gets episodes of nausea and vomiting once or twice a day for the last 4 months. Review of Systems Review of Systems Constitutional: Denies fever or chills [] Eyes: Denies change in visual acuity, redness, or eye pain [] HENT: Denies nasal congestion or sore throat [] Respiratory: Denies cough or shortness of breath [] Cardiovascular: No additional information not addressed in HPI [] GI: Denies abdominal pain, nausea, vomiting, bloody stools or diarrhea [] : Denies dysuria or hematuria [] Musculoskeletal: Denies back pain or joint pain [] Integument: Denies rash or skin lesions [] Neurologic: Reports headache, denies focal weakness or sensory changes [] Endocrine: Denies polyuria or polydipsia [] All other systems were reviewed and found to be within normal limits, except as documented in this note. Current Medications Current Medications Current Medications Medications (Trade) Dose Ordered Sig/Andrea Start Time Stop Time Status Last Admin Dose Admin Ondansetron HCl (Zofran) 8 mg 1X ONCE 06/19/18 14:30 06/19/18 14:40 DC 06/19/18 14:28 8 MG Sodium Chloride 1,000 ml @ 1,000 mls/hr Q1H 06/19/18 14:24 06/19/18 15:23 DC 06/19/18 14:28 1,000 MLS/HR Allergies Allergies Allergies Coded Allergies Type Severity Reaction Last Updated Verified No Known Allergies Allergy Unknown 08/27/15 Yes Physical Exam Physical Exam Constitutional: Well developed, well nourished,mild distress, non-toxic appearance, smell of alcohol on breath. [] HENT: Normocephalic, large left parietal hematoma, oropharynx moist. Eyes: PERRLA, EOMI, conjunctiva normal, no discharge. [] Neck: Immobilized by c-collar at arrival to ER. Cardiovascular:Heart rate regular rhythm, no murmur [] Lungs & Thorax: Bilateral breath sounds clear to auscultation [] Abdomen: Bowel sounds normal, soft, no tenderness, no masses, no pulsatile masses. [] Skin: Warm, dry, no erythema, no rash. [] Back: No tenderness, no CVA tenderness. [] Extremities: No tenderness, no cyanosis, no clubbing, ROM intact, no edema. [] Neurologic: Alert and oriented X 3, normal motor function, normal sensory function, no focal deficits noted. [] Psychologic: Affect normal, judgement normal, mood normal. [] Current Patient Data Vital Signs Vital Signs Date Time Temp Pulse Resp B/P (MAP) Pulse Ox O2 Delivery O2 Flow Rate FiO2 06/19/18 14:00 97.7 81 16 105/70 (82) 97 Room Air 97.7 Lab Values Laboratory Tests Test 06/19/18 14:15 06/19/18 14:34 White Blood Count 6.7 x10^3/uL (4.0-11.0) Red Blood Count 4.63 x10^6/uL (4.30-5.70) Hemoglobin 13.2 g/dL (13.0-17.5) Hematocrit 40.0 % (39.0-53.0) Mean Corpuscular Volume 86 fL (79-100) Mean Corpuscular Hemoglobin 29 pg (25-35) Mean Corpuscular Hemoglobin Concent 33 g/dL (31-37) Red Cell Distribution Width 14.5 % (11.5-14.5) Platelet Count 182 x10^3/uL (140-400) Neutrophils (%) (Auto) 48 % (31-73) Lymphocytes (%) (Auto) 42 % (24-48) Monocytes (%) (Auto) 9 % (0-9) Eosinophils (%) (Auto) 1 % (0-3) Basophils (%) (Auto) 1 % (0-3) Neutrophils # (Auto) 3.2 x10^3uL (1.8-7.7) Lymphocytes # (Auto) 2.8 x10^3/uL (1.0-4.8) Monocytes # (Auto) 0.6 x10^3/uL (0.0-1.1) Eosinophils # (Auto) 0.1 x10^3/uL (0.0-0.7) Basophils # (Auto) 0.0 x10^3/uL (0.0-0.2) Prothrombin Time 14.7 SEC (11.7-14.0) H Prothrombin Time INR 1.2 (0.8-1.1) H PTT 26 SEC (24-38) Sodium Level 141 mmol/L (136-145) Potassium Level 4.0 mmol/L (3.5-5.1) Chloride Level 102 mmol/L (98-107) Carbon Dioxide Level 29 mmol/L (21-32) Anion Gap 10 (6-14) Blood Urea Nitrogen 17 mg/dL (8-26) Creatinine 1.8 mg/dL (0.7-1.3) H Estimated GFR (Cockcroft-Gault) 48.6 BUN/Creatinine Ratio 9 (6-20) Glucose Level 151 mg/dL (70-99) H Calcium Level 8.8 mg/dL (8.5-10.1) Total Bilirubin 0.3 mg/dL (0.2-1.0) Aspartate Amino Transferase (AST) 70 U/L (15-37) H Alanine Aminotransferase (ALT) 118 U/L (16-63) H Alkaline Phosphatase 65 U/L (46-116) Total Protein 7.4 g/dL (6.4-8.2) Albumin 3.6 g/dL (3.4-5.0) Albumin/Globulin Ratio 0.9 (1.0-1.7) L Lipase 90 U/L (73-393) Ethyl Alcohol Level 158 mg/dL (0-10) H POC Troponin I 0.00 ng/ml (<0.08) Laboratory Tests 06/19/18 14:15 Laboratory Tests 06/19/18 14:15 EKG EKG Platelet by me. EKG at 1356 showed normal sinus rhythm at rate of 81, left hoang axis, prolonged QT at 410, no acute ST and T-wave abnormalities Radiology/Procedures Radiology/Procedures [facility] [address] [place] [address] IMAGING REPORT Signed PATIENT: TORO GIVENS ACCOUNT: [id number] : 1970 LOCATION: ER AGE: 48 SEX: M EXAM STATUS: REG ER ORD. PHYSICIAN: REINA ANGELES MD REASON: syncope and fall PROCEDURE: CT HEAD AND CERVICAL SPINE WO CT head; CT cervical spine lumbar spine without contrast History: Syncope, fall Technique: Noncontrast CT imaging was performed of the head, cervical spine, lumbar spine. Multiplanar reconstruction images are submitted. Exposure: One or more of the following individualized dose reduction techniques were utilized for this examination: 1. Automated exposure control 2. Adjustment of the mA and/or kV according to patient size 3. Use of iterative reconstruction technique. Head CT Comparison: March 07, 2018 Findings: There is left frontal region scalp hematoma. No acute extra-axial or parenchymal hemorrhage is identified. There is no significant intra-axial mass effect, midline shift, or extra-axial fluid collection. The miller-white differentiation of the major vascular territories is preserved. The ventricles, sulci, and cisterns are within normal limits in size and configuration. The mastoid air cells and the visualized paranasal sinuses are aerated. There is right nicolas bullosa. There is no significant focal calvarial abnormality. Impression: 1. No acute intracranial abnormality is identified. 2. There is left frontal region scalp hematoma. Cervical spine CT Comparison: March 07, 2018 Findings: No acute cervical spine fracture is identified. Vertebral body stature and AP alignment are within normal limits. Atlanto-axial distance is within normal limits. There is appropriate alignment of lateral masses of C1 relative to C2. Occipital condylar-C1 relationship is maintained. There is more advanced degenerative disc disease at C6-7 and to lesser degree at C5-6 and C3-4. There are minimal disc osteophyte complexes greatest C5-6 and C6-7, likely borderline narrowing of the central canal at C6-7 and likely mild narrowing of the central canal about 9 to 10 mm at C5-6. There is multilevel facet and uncovertebral degenerative change. There is moderate to severe narrowing of the right C5-6 neural foramen. There is fairly severe narrowing of the left C6-7 neural foramen, probable moderate narrowing on the right at C6-7. Impression: 1. No acute cervical spine fracture is identified. 2. There is multilevel cervical degenerative disc disease and spondylosis greatest C5-6 and C6-7, likely mild spinal stenosis greatest C5-6. 3. Facet and uncovertebral degenerative change contributes to neural foramina compromise greatest on the right at C5-6 and bilaterally at C6-7. Lumbar spine: COMPARISON: None FINDINGS: There is transitional anatomy of the lumbar spine. For the purpose of this report, most inferior fully formed intervertebral disc space is considered L5-S1, small bilateral riblets at what is considered L1, and rudimentary intervertebral disc space at what is considered S1-S2. Lumbar vertebral body stature is overall maintained. There is moderate degenerative disc disease at what is considered L5-S1. There is also disc osteophyte complex and bulge at what is considered L5-S1. No acute lumbar spine fracture is identified. There is multilevel lumbar facet degenerative change. There are some small foci of symmetric bony irregularity of the anterior, lateral margins of the lateral sacrum near the sacroiliac joints more likely to be chronic. There is mild narrowing of the right L5-S1 neural foramen in part from disc osteophyte complex. IMPRESSION: 1. There is transitional anatomy of the lumbar spine. No acute lumbar spine fracture is identified. 2. There is degenerative disc disease and spondylosis at what is considered L5-S1, also disc bulge at this level. There is multilevel lumbar facet degenerative change. 3. There are some small symmetric foci of irregularity of the anterolateral sacrum bilaterally more likely to be chronic. Electronically signed by: Kurt Thomas MD (06/19/2018 3:23 PM) [facility] DICTATED and SIGNED BY: KURT THOMAS MD DATE: 06/19/18 1523 Course & Med Decision Making Course & Med Decision Making Pertinent Labs and Imaging studies reviewed. (See chart for details) Evaluation of the patient in ER showed 48-year-old male patient with history of alcohol abuse brought in because of a fall and injury to his head. C-collar was applied in ER. Patient had 1 episode of large amount of liquid vomiting after arrival to ER that improved with Zofran and IV fluid. Patient had unremarkable CT head, cervical spine, lumbar spine as c-collar was removed. Labs was unremarkable except for elevation of liver function tests and alcohol level. Patient was advised to quit smoking and drinking alcohol and follow up with a primary care physician. Patient had another episode of a small amount of vomiting after removing IV line that resolved spontaneously . Dragon Disclaimer Dragon Disclaimer This electronic medical record was generated, in whole or in part, using a voice recognition dictation system. Departure Departure Impression: Primary Impression: Head injury Additional Impressions: Scalp hematoma Alcohol intoxication Liver enzyme elevation Nausea and vomiting Tobacco abuse Tobacco abuse counseling Disposition: HOME, SELF-CARE (1616) Condition: IMPROVED Referrals: NO PCP (PCP) Patient Instructions: Alcohol Intoxication, Head Injury, Adult, Scalp Hematoma , Smoking Cessation, Tips For Success Additional Instructions: Drink plenty of liquids Follow-up with your primary care physician in 3-5 days Return to ER if not getting better Scripts Ondansetron Hcl (ZOFRAN) 4 Mg Tablet 1 TAB PO PRN Q6-8HRS for nausea, #12 TAB Prov: REINA ANGELES MD 06/19/18 Problem Qualifiers Primary Impression: Head injury Encounter type: initial encounter Qualified Codes: S09.90XA - Unspecified injury of head, initial encounter Additional Impressions: Scalp hematoma Encounter type: subsequent encounter Qualified Codes: S00.03XD - Contusion of scalp, subsequent encounter Alcohol intoxication Complication of substance-induced condition: with unspecified complication Qualified Codes: F10.929 - Alcohol use, unspecified with intoxication, unspecified Nausea and vomiting Vomiting type: unspecified REINA ANGELES MD Jun 19, 2018 15:37
--- NOTE | 2018-06-19 16:06 | RAD ---
Single view of the chest. 06/19/2018 3:49 PM Indication: SYNCOPE AND FALL Comparison: None Findings: There is no focal consolidation. There is no pleural effusion or pneumothorax. The cardiomediastinal silhouette and pulmonary vasculature are within normal limits. No acute osseous abnormalities are seen. Impression: No evidence of acute cardiopulmonary process. Electronically signed by: Candido Lechuga MD (06/19/2018 4:04 PM) [facility]
[2018-06-19] MEDS ORDERED: ONDA4TAB7 PO (16:21)
[2018-06-19 16:27] VITALS: BP 140/78
--- NOTE | 2018-06-20 07:15 | EKG ---
[facility] [address] [place] [address] Test Date: 2018-06-19 Test Time: 13:56:54 Pat Name: TORO GIVENS Department: Room: Gender: M Street Worker: : 1970 Requested By: REINA ANGELES Order Number: [id number] Reading MD: Len Hernandez MD Measurements Intervals Rankin Rate: 81 P: 49 MN: 160 QRS: 0 QRSD: 86 T: 8 QT: 410 QTc: 477 Interpretive Statements SINUS RHYTHM Electronically Signed On 06-22-2018 9:49:16 CDT by Len Hernandez MD
== END 2018-06-19 16:38 | disposition home or self-care (01) ==
LOC: ER 13:43
DX: S00.03XA Contusion of scalp, initial encounter (principal); R11.2 Nausea with vomiting, unspecified; F10.229 Alcohol dependence with intoxication, unspecified; R74.8 Abnormal levels of other serum enzymes; Y90.6 Blood alcohol level of 120-199 mg/100 ml; Z71.6 Tobacco abuse counseling; I10 Essential (primary) hypertension; F17.210 Nicotine dependence, cigarettes, uncomplicated; W17.89XA Other fall from one level to another, initial encounter; Y93.89 Activity, other specified; Y92.512 Supermarket, store or market as the place of occurrence of the external cause; Y99.8 Other external cause status
CPT/HCPCS: 36415; 70450; 71045; 72125; 72131; 80053; 83690; 84484; 85025; 85610; 85730; 93005; 96361; 96374; 99285; G0480; J2405; J7030

== ENCOUNTER 2020-01-13 00:27 | Emergency (ER) | payer OTHER ==
[~2020-01-13] VITALS: Ht 185.4 cm; Wt 115.7 kg
[~2020-01-13 00:27] MED LIST changes: +ONDA4TAB7 PO
--- NOTE | 2020-01-13 00:36 | ED.ADGEN ---
Past Medical History Past Medical History: Alcoholism, Hypertension, Hepatitis Past Surgical History: Other Additional Past Surgical Histo: bilateral wrist Smoking Status: Current Every Day Smoker Alcohol Use: Heavy Drug Use: None General Adult HPI: HPI: Patient is a 49 year old male brought in by EMS after being found on a corner. EMS states that they have seen him at that location throughout the day, patient is known to be an alcoholic and homeless. Was in this facility 1 week ago for similar situation and combative at times, claiming he has PTSD. Patient was able to walk with assistance and answer questions although appears to be intoxicated. States he drank 3 pints of vodka today, and has not eaten. Review of Systems: Review of Systems: Limited due to patient's current intoxicated status but no acute complaints Allergies: Allergies: Allergies Coded Allergies Type Severity Reaction Last Updated Verified No Known Allergies Allergy Unknown 08/27/15 Yes Physical Exam: PE: Constitutional: Well developed, well nourished, no acute distress, non-toxic appearance. [] Intoxicated HENT: Normocephalic, atraumatic, bilateral external ears normal, oropharynx moist, no oral exudates, nose normal. [] Eyes: PERRLA, EOMI, conjunctiva normal, no discharge. [] Neck: Normal range of motion, no tenderness, supple, no stridor. [] Cardiovascular:Heart rate regular rhythm, no murmur [] Lungs & Thorax: Bilateral breath sounds clear to auscultation [] Abdomen: Bowel sounds normal, soft, no tenderness, no masses, no pulsatile masses. [] Skin: Warm, dry, no erythema, no rash. [] Back: No tenderness, no CVA tenderness. [] Extremities: No tenderness, no cyanosis, no clubbing, ROM intact, no edema. [] Neurologic: Alert and oriented X 3, normal motor function, normal sensory function, no focal deficits noted. [] Psychologic: Affect normal, judgement normal, mood normal. [] Current Patient Data: Labs: Laboratory Tests Test 01/13/20 00:35 01/13/20 01:12 White Blood Count 7.8 x10^3/uL (4.0-11.0) Red Blood Count 4.83 x10^6/uL (4.30-5.70) Hemoglobin 14.4 g/dL (13.0-17.5) Hematocrit 43.0 % (39.0-53.0) Mean Corpuscular Volume 89 fL (79-100) Mean Corpuscular Hemoglobin 30 pg (25-35) Mean Corpuscular Hemoglobin Concent 33 g/dL (31-37) Red Cell Distribution Width 14.3 % (11.5-14.5) Platelet Count 207 x10^3/uL (140-400) Neutrophils (%) (Auto) 56 % (31-73) Lymphocytes (%) (Auto) 36 % (24-48) Monocytes (%) (Auto) 6 % (0-9) Eosinophils (%) (Auto) 0 % (0-3) Basophils (%) (Auto) 1 % (0-3) Neutrophils # (Auto) 4.4 x10^3/uL (1.8-7.7) Lymphocytes # (Auto) 2.8 x10^3/uL (1.0-4.8) Monocytes # (Auto) 0.5 x10^3/uL (0.0-1.1) Eosinophils # (Auto) 0.0 x10^3/uL (0.0-0.7) Basophils # (Auto) 0.1 x10^3/uL (0.0-0.2) Sodium Level 146 mmol/L (136-145) H Potassium Level 4.3 mmol/L (3.5-5.1) Chloride Level 105 mmol/L (98-107) Carbon Dioxide Level 28 mmol/L (21-32) Anion Gap 13 (6-14) Blood Urea Nitrogen 30 mg/dL (8-26) H Creatinine 1.8 mg/dL (0.7-1.3) H Estimated GFR (Cockcroft-Gault) 48.4 BUN/Creatinine Ratio 17 (6-20) Glucose Level 109 mg/dL (70-99) H Lactic Acid Level 2.6 mmol/L (0.4-2.0) H Calcium Level 8.6 mg/dL (8.5-10.1) Magnesium Level 2.8 mg/dL (1.8-2.4) H Total Bilirubin 0.1 mg/dL (0.2-1.0) L Aspartate Amino Transferase (AST) 51 U/L (15-37) H Alanine Aminotransferase (ALT) 138 U/L (16-63) H Alkaline Phosphatase 91 U/L (46-116) Troponin I Quantitative < 0.017 ng/mL (0.000-0.055) Total Protein 8.6 g/dL (6.4-8.2) H Albumin 4.2 g/dL (3.4-5.0) Albumin/Globulin Ratio 1.0 (1.0-1.7) Ethyl Alcohol Level 384 mg/dL (0-10) H Glucose (Fingerstick) 97 mg/dL (70-99) Laboratory Tests 01/13/20 00:35 Laboratory Tests 01/13/20 00:35 Vital Signs: Vital Signs Date Time Temp Pulse Resp B/P (MAP) Pulse Ox O2 Delivery O2 Flow Rate FiO2 01/13/20 02:50 97.2 92 16 100 97.2 01/13/20 00:27 145/85 (105) Nasal Cannula 3.0 EKG: EKG: [] Heart Score: Risk Factors: Risk Factors: DM, Current or recent (<one month) smoker, HTN, HLP, family history of CAD, obesity. Risk Scores: Score 0 - 3: 2.5% MACE over next 6 weeks - Discharge Home Score 4 - 6: 20.3% MACE over next 6 weeks - Admit for Clinical Observation Score 7 - 10: 72.7% MACE over next 6 weeks - Early Invasive Strategies Radiology/Procedures: Radiology/Procedures: [] Course & Med Decision Making: Course & Med Decision Making Pertinent Labs and Imaging studies reviewed. (See chart for details) I received signout from Dr. Oneal at shift change. Patient presented with al cohol intoxication and labs show chronic renal insufficiency. Patient awake alert, clinically sober with steady gait and requesting food. Patient very apologetic and appreciative of his care reporting "I had way too much to drink." States he does not drink daily. Denies any falls, trauma or assault. Denies SI/HI. Has no active pain. No signs of trauma on physical exam. [facility] Has no active complaints request. Strict ED return precautions were given for severe headache, neck pain or chest pain. Encouraged urgent outpatient follow-up with PMD. Life-threatening processes were considered but are low suspicion at this time, given history and physical exam. Pt was educated on all prescription medications and adverse effects. All patient's questions were answered and pt was stable at time of discharge. Life/limb-threatening differential includes but is not limited to, intracranial hemorrhage, diffuse axonal injury, spinal cord syndrome, unstable cervical fracture or SCIWORA, fractures or joint dislocations, neurovascular injuries, organ injury or laceration, pneumothorax, pneumoperitoneum, pericardial tamponade, unstable pelvic fracture, compartment syndrome, flail chest or respiratory distress, burn injury or asphyxiation, danger to self/others including suicidal or homicidal ideations. I spoken with the patient and her caregivers. I explained the patient's condition, diagnoses and treatment plan based on the information available to me at this time. I have answered the patient and her caregiver's questions and addressed any concerns. The patient and her caregivers have a good understanding of patient's diagnosis, condition and treatment plan as can be expected at this point. Vital signs have been stable. Patient's condition is stable and appropriate for discharge from the emergency department. Patient will pursue further outpatient evaluation with primary care physician or other designated or consulting physician as outlined in the discharge instructions. The patient and/or caregivers are agreeable to this plan of care and follow-up instructions have been explained in detail. The patient and/or caregivers have received these instructions in written form and have expressed an understanding of the discharge instructions. The patient and/or caregivers are aware that any significant change of condition or worsening of symptoms should prompt immediate return to this or the closest emergency department or call to 911. Yandy Disclaimer: Yandy Disclaimer: This electronic medical record was generated, in whole or in part, using a voice recognition dictation system. Departure Departure Impression: Primary Impression: Alcohol intoxication Additional Impression: Chronic renal insufficiency Disposition: 01 DC HOME SELF CARE/HOMELESS Condition: STABLE Referrals: NO PCP (PCP) YOU PCP at [facility] OR FOLLOW UP WITH FAMILY MEDICINE: Family Medicine Address: [address] [place] [address] Patient Instructions: Alcohol Intoxication, Chronic Renal Insufficiency Additional Instructions: FOLLOW UP WITH NEPHROLOGY: [facility] Address: [address] [place] [address] EMERGENCY DEPARTMENT GENERAL DISCHARGE INSTRUCTIONS Thank you for coming to [facility] Emergency Department (ED) today and trusting us with you care. We trust that you had a positive experience in our Emergency Department. If you wish to speak to the department management, you may call the Director at [phone]. YOUR FOLLOW UP INSTRUCTIONS ARE FOLLOWS: 1. Do you have a private Doctor? If you do not have a private doctor, please ask for a resource list of physicians or clinics that may be able to assist you with follow up care. 2. The Emergency Physicain has interpreted your x-rays. The X-Ray specialist will also review them. If there is a change in the findings, you will be notified in 48 hours when at all possible. 3. A lab test or culture has been done, your results will be reviewed and you will be notified if you need a change in treatment. ADDITIONAL INSTRUCTIONS AND INFORMATION: 1. Your care today has been supervised by a physician who is specially trained in emergency care. Many problems require more than one evaluation for a complete diagnosis and treatment. We recommend that you schedule your follow up appointment as rec ommended to ensure complete treatment of you illness or injury. If you are unable to obtain follow up care and continue to have a problem, or if your condition worsens, we recommend that you return to the ED. 2. We are not able to safely determine your condition over the phone nor are we able to give sound medical advice over the phone. For these safety reasons, if you call for medical advice we will ask you to come to the ED for further evaluation. 3. If you have any questions regarding these discharge instructions please call the ED at [phone]. SAFETY INFORMATION: In the interest of safety, wellness, and injury prevention; we encourage you to wear your sealbelt, if you smoke; quite smoking, and we encourage family to use a protective helmet for bicycling and other sporting events that present an increased risk for head injury. IF YOUR SYMPTOMS WORSEN OR NEW SYMPTOMS DEVELOP, OR YOU HAVE CONCERNS ABOUT YOUR CONDITION; OR IF YOUR CONDITION WORSENS WHILE YOU ARE WAITING FOR YOUR FOLLOW UP APPOINTMENT; EITHER CONTACT YOUR PRIMARY CARE DOCTOR, THE PHYSICIAN WHOSE NAME AND NUMBER YOU WERE GIVEN, OR RETURN TO THE ED IMMEDIATELY. Problem Qualifiers VIPIN ONEAL MD Jan 13, 2020 00:36 KIM SHAW DO Jan 13, 2020 06:57
[2020-01-13 01:00] LABS: BASO # 0.1 x10^3/uL (0.0-0.2); BASO % 1 % (0-3); EOS % 0 % (0-3); HEMOGLOBIN 14.4 g/dL (13.0-17.5); LYMPH # 2.8 x10^3/uL (1.0-4.8); LYMPH % 36 % (24-48); MEAN CORPUSCULAR HEMOGLOBIN 30 pg (25-35); MEAN CORPUSCULAR HGB CONC 33 g/dL (31-37); MEAN CORPUSCULAR VOLUME 89 fL (79-100); MONO # 0.5 x10^3/uL (0.0-1.1); MONO % 6 % (0-9); NEUT # 4.4 x10^3/uL (1.8-7.7); NEUT % 56 % (31-73); PLATELET COUNT 207 x10^3/uL (140-400); RED BLOOD COUNT 4.83 x10^6/uL (4.30-5.70); RED CELL DISTRIBUTION WIDTH 14.3 % (11.5-14.5); WHITE BLOOD COUNT 7.8 x10^3/uL (4.0-11.0)
[2020-01-13 01:12] LABS: CALCIUM 8.6 mg/dL (8.5-10.1); CREATININE 1.8 mg/dL (0.7-1.3); GFR 48.4; POTASSIUM 4.3 mmol/L (3.5-5.1)
[2020-01-13 01:27] LABS: ALBUMIN 4.2 g/dL (3.4-5.0); MAGNESIUM 2.8 mg/dL (1.8-2.4); TOTAL BILIRUBIN 0.1 mg/dL (0.2-1.0); TOTAL PROTEIN 8.6 g/dL (6.4-8.2)
[2020-01-13 06:30] VITALS: BP 115/58
== END 2020-01-13 07:05 | disposition home or self-care (01) ==
LOC: ER 00:27
DX: F10.229 Alcohol dependence with intoxication, unspecified (principal); I12.9 Hypertensive chronic kidney disease with stage 1 through stage 4 chronic kidney disease, or unspecified chronic kidney disease; N18.9 Chronic kidney disease, unspecified; R51.9 Headache, unspecified; R07.89 Other chest pain; K75.9 Inflammatory liver disease, unspecified; F17.200 Nicotine dependence, unspecified, uncomplicated; Z98.890 Other specified postprocedural states
CPT/HCPCS: 36415; 80053; 82962; 83605; 83735; 84484; 85025; 99285; G0480